=== PATIENT | female | born 1965 | race Caucasian/White ===

== ENCOUNTER 2017-11-15 01:09 | Emergency (ER) | payer OTHER ==
[~2017-11-15] VITALS: Ht 162.6 cm; Wt 68.0 kg
[2017-11-15 01:11] VITALS: BP 106/64; PULSE 51; RESP 18; TEMP 98.7; O2SAT 98
[2017-11-15 01:15] VITALS: BP 106/64; PULSE 57; RESP 18; O2SAT 100
[2017-11-15] MEDS ORDERED: SODIUM CHLOR 0.9% 1000 ML INJ 1,000 ML IV ONE (01:15)
[2017-11-15] MEDS ORDERED: ONDANSETRON HCL 4 MG/2 ML VIAL IVP ONE (01:15)
[2017-11-15 01:28] LABS: AUTOMATED NEUTROPHIL # 7.3 TH/MM3 (1.8-7.7); BASOPHIL # 0.1 TH/MM3 (0-0.2); BASOPHIL % 0.7 % (0.0-2.0); EOSINOPHIL # 0.1 TH/MM3 (0-0.4); EOSINOPHIL % 0.7 % (0.0-4.0); HEMOGLOBIN 15.2 GM/DL (11.6-15.3); LYMPH % 22.6 % (9.0-44.0); LYMPHOCYTE # 2.4 TH/MM3 (1.0-4.8); MEAN CELL VOLUME 91.1 FL (80.0-100.0); MEAN CORPUSCULAR HEMOGLOBIN 33.7 PG (27.0-34.0); MEAN PLATELET VOLUME 7.5 FL (7.0-11.0); MONO % 5.8 % (0.0-8.0); MONOCYTE # 0.6 TH/MM3 (0-0.9); NEUT % 70.2 % (16.0-70.0); PLATELET COUNT 386 TH/MM3 (150-450); RED CELL DISTRIBUTION WIDTH 12.8 % (11.6-17.2); WHITE BLOOD COUNT 10.4 TH/MM3 (4.0-11.0)
[2017-11-15 01:44] LABS: BICARBONATE 27.3 MEQ/L (21.0-32.0); CALCIUM 9.5 MG/DL (8.5-10.1); CREATININE 1.05 MG/DL (0.50-1.00); MAGNESIUM 2.3 MG/DL (1.5-2.5)
[2017-11-15 02:19] LABS: BANDS 26 % (0-6); LYMPHOCYTES 18 % (9-44); MONOCYTES 1 % (0-8); NEUTROPHIL # MANUAL DIFF 8.4 TH/MM3 (1.8-7.7); POLYS (SEG NEUTROPHILS) 55 % (16-70)
--- NOTE | 2017-11-15 02:34 | PD ---
HPI Chief Complaint: Syncope/Near-Syncope Time Seen by Provider: 01:45 Travel History International Travel<30 days: No Contact w/Intl Traveler<30days: No Traveled to known affect area: No History of Present Illness HPI The patient arrives to the ER as an emergency response patient after she syncopized while with an acquaintance. She reports a sudden feeling of hotness followed by loss of consciousness. He was reported she struck her left forehead against a needle receptacle. No chest pain shortness of breath nausea vomiting or diaphoresis proceeded the loss of consciousness. Patient reports feeling in her normal state of health over the past several days. No black stool. No new or different medication. At the time of assessment after the patient had no complaints. PFSH Past Medical History Diabetes: Yes Patient Takes Glucophage: No Tetanus Vaccination: < 5 Years Influenza Vaccination: No ?: Not : 3 Para: 3 Past Surgical History Hysterectomy: Yes Social History Alcohol Use: No Tobacco Use: No Substance Use: No Allergies-Medications (Allergen,Severity, Reaction): Coded Allergies: No Known Allergies (Unverified , 11/15/17) Review of Systems Except as stated in HPI: all other systems reviewed are Neg General / Constitutional: No: Fever Physical Exam Narrative GENERAL: 52-year-old female pleasant well-nourished well-developed no acute distress Vital Signs Date Time Temp Pulse Resp B/P (MAP) Pulse Ox O2 Delivery O2 Flow Rate FiO2 11/15/17 01:15 18 100 11/15/17 01:15 57 18 106/64 (78) 100 11/15/17 01:11 98.7 51 18 106/64 (78) 98 SKIN: Warm and dry. HEAD: Atraumatic. Normocephalic. EYES: Pupils equal and round. No scleral icterus. No injection or drainage. ENT: No nasal bleeding or discharge. Mucous membranes pink and moist. NECK: Trachea midline. No JVD. CARDIOVASCULAR: Regular rate and rhythm. RESPIRATORY: No accessory muscle use. Clear to auscultation. Breath sounds equal bilaterally. GASTROINTESTINAL: Abdomen soft, non-tender, nondistended. Hepatic and splenic margins not palpable. MUSCULOSKELETAL: Extremities without clubbing, cyanosis, or edema. No obvious deformities. NEUROLOGICAL: Awake and alert. No obvious cranial nerve deficits. Motor grossly within normal limits. Five out of 5 muscle strength in the arms and legs. Normal speech. PSYCHIATRIC: Appropriate mood and affect; insight and judgment normal. Data Data Last Documented VS Vital Signs Date Time Temp Pulse Resp B/P (MAP) Pulse Ox O2 Delivery O2 Flow Rate FiO2 11/15/17 01:15 18 100 11/15/17 01:15 57 106/64 (78) 11/15/17 01:11 98.7 Orders Orders Electrocardiogram (11/15/17 01:15) Basic Metabolic Panel (Bmp) (11/15/17 01:15) Complete Blood Count With Diff (11/15/17 01:15) Magnesium (Mg) (11/15/17 01:15) Blood Glucose (11/15/17 01:15) Ecg Monitoring (11/15/17:15) Iv Access Insert/Monitor (11/15/17:15) Ondansetron Inj (Zofran Inj) (11/15/17 01:15) Sodium Chlor 0.9% 1000 Ml Inj (Ns 1000 M (11/15/17 01:15) Labs Laboratory Tests Test 11/15/17 01:15 White Blood Count 10.4 TH/MM3 Red Blood Count 4.50 MIL/MM3 Hemoglobin 15.2 GM/DL Hematocrit 41.0 % Mean Corpuscular Volume 91.1 FL Mean Corpuscular Hemoglobin 33.7 PG Mean Corpuscular Hemoglobin Concent 37.0 % Red Cell Distribution Width 12.8 % Platelet Count 386 TH/MM3 Mean Platelet Volume 7.5 FL Neutrophils (%) (Auto) 70.2 % Lymphocytes (%) (Auto) 22.6 % Monocytes (%) (Auto) 5.8 % Eosinophils (%) (Auto) 0.7 % Basophils (%) (Auto) 0.7 % Neutrophils # (Auto) 7.3 TH/MM3 Lymphocytes # (Auto) 2.4 TH/MM3 Monocytes # (Auto) 0.6 TH/MM3 Eosinophils # (Auto) 0.1 TH/MM3 Basophils # (Auto) 0.1 TH/MM3 CBC Comment AUTO DIFF Differential Total Cells Counted 100 Neutrophils % (Manual) 55 % Band Neutrophils % 26 % Lymphocytes % 18 % Monocytes % 1 % Neutrophils # (Manual) 8.4 TH/MM3 Differential Comment FINAL DIFF MANUAL Atypical Lymphocytes % Platelet Estimate NORMAL Platelet Morphology Comment NORMAL Red Cell Morphology Comment NORMAL Blood Urea Nitrogen 15 MG/DL Creatinine 1.05 MG/DL Random Glucose 149 MG/DL Calcium Level 9.5 MG/DL Magnesium Level 2.3 MG/DL Sodium Level 140 MEQ/L Potassium Level 4.0 MEQ/L Chloride Level 101 MEQ/L Carbon Dioxide Level 27.3 MEQ/L Anion Gap 12 MEQ/L Estimat Glomerular Filtration Rate 55 ML/MIN MDM Medical Decision Making Medical Screen Exam Complete: Yes Emergency Medical Condition: Yes Differential Diagnosis Arrhythmia, anemia, electrolyte imbalance, vasovagal episode Narrative Course EKG shows sinus bradycardia at a rate of 50, no evidence pre-excitation CBC & BMP Diagram 11/15/17 01:15 Calcium Level 9.5, Magnesium Level 2.3 The patient is resting comfortably and feels better, is alert and in no distress. The patients results and examination findings were discussed. The repeat examination is unremarkable and benign. The history, exam, diagnostic testing, and current condition do not suggest any significant pathology to warrant further testing, continued ED treatment, admission, or surgical evaluation at this point. The vital signs have been stable. The patient does not have uncontrollable pain, intractable vomiting, or other significant symptoms. The patient's condition is stable and appropriate for discharge. The patient will pursue further outpatient evaluation with a primary care physician or other designated or consulting physician as indicated in the discharge instructions. The patient expressed understanding and was agreeable with this plan. Diagnosis Primary Impression: Syncope and collapse Referrals: Primary Care Physician 3 days Med/Other Pt SpecificInfo: No Change to Meds Disposition: 01 DISCHARGE HOME Condition: Stable Tomy Frederick MD Nov 15, 2017 02:34
[2017-11-15 03:10] VITALS: BP 119/80
--- NOTE | 2017-11-16 17:55 | EKG ---
Date Performed: 11/15/2017 Time Performed: 01:11:36 PTAGE: 52 years EKG: SINUS BRADYCARDIA LEFT AXIS DEVIATION NONSPECIFIC ST-T CHANGE ABNORMAL ECG NO PREVIOUS TRACING DOCTOR: Luis Carlos Cote Interpretating Date/Time 11/16/2017 17:54:20
== END 2017-11-15 03:22 | disposition home or self-care (01) ==
LOC: NEPC 01:09
DX: R55 Syncope and collapse (principal); R00.1 Bradycardia, unspecified
CPT/HCPCS: 80048; 83735; 85007; 85027; 93005; 96374; 99284; J2405; J7030